=== PATIENT | male | born 1950 | race Caucasian/White ===

== ENCOUNTER 2020-01-01 07:18 | Emergency (ER) | payer OTHER, BC ==
[2020-01-01 07:32] VITALS: BP 155/77; PULSE 66; TEMP 98.6; BMI 24.2
[2020-01-01] MEDS ORDERED: LOCK ITEM NR ONE (07:33)
[2020-01-01] MEDS ORDERED: LIDOCAINE 5% TOPICAL PATCH TP ONE (07:37)
[2020-01-01] MEDS ORDERED: NAPROXEN 500 MG TABLET PO ONE (07:38)
[2020-01-01] MEDS ORDERED: LIDOCAINE 5% TOPICAL PATCH ONE (07:42)
[2020-01-01] MEDS ORDERED: NAPROXEN 500 MG TABLET ONE (07:43)
--- NOTE | 2020-01-01 07:43 | PDOC ---
History of Present Illness - General Chief Complaint: Back Pain Stated Complaint: back pain Time Seen by Provider: 01/01/20 07:22 - History of Present Illness Initial Comments: 01/01/20 07:38 69 M with DM, HTN, HLD, presenting to ED with 1 week of lower back pain. Pt states that he does a lot of lifting for his job but does not recall any injuries at work. He states that he feels the pain in his L lower back more than his R lower back, and it is worse with bending. Denies any weakness/numbness in either leg. Denies incontinence of bowel or bladder, no saddle anesthesia. Denies radiation of pain to abdomen or chest. Denies pain radiating down legs. Pt took a motrin at home with no relief. Past History - Medical History Allergies/Adverse Reactions: Allergies Allergy/AdvReac Type Severity Reaction Status Date / Time No Known Allergies Allergy Verified 01/01/20 07:19 Home Medications: Ambulatory Orders Aspirin [Aspir 81] 81 mg PO DAILY 04/15/13 Atorvastatin Ca [Lipitor] 20 mg PO HS 12/07/14 metFORMIN HCL [Glucophage] 1,000 mg PO BID 12/07/14 Insulin Glargine,Hum.rec.anlog [Lantus] 10 unit SQ HS vial 06/02/16 Empagliflozin [Jardiance] 10 mg PO DAILY 01/01/20 Fluoxetine HCl [Prozac] 10 mg PO DAILY 01/01/20 Lisinopril 5 mg PO DAILY 01/01/20 COPD: No Diabetes: Yes Disorders: Yes (BPH) HTN: Yes Hypercholesterolemia: Yes - Immunization History Td Vaccination: Yes - Psycho-Social/Smoking History Smoking History: Never smoked Have you smoked in the past 12 months: No Information on smoking cessation initiated: No - Substance Abuse Hx (Audit-C & DAST Scrn) How often the patient has a drink containing alcohol: Never Score: In Men: 4 or > Positive; In Women: 3 or > Positive: 0 Screen Result (Pos requires Nsg. Audit-10AR): Negative In the last yr the pt used illegal drug/Rx for NonMed reason: No Score: Yes response is considered Positive: 0 Screen Result (Positive result requires Nsg. DAST-10): Negative Review of Systems - Review of Systems Comments:: 01/01/20 07:40 "GENERAL/CONSTITUTIONAL: No fever or chills. No weakness. HEAD, EYES, EARS, NOSE AND THROAT: No change in vision. No ear pain or discharge. No sore throat. CARDIOVASCULAR: No chest pain, no shortness of breath, no loss of consciousness RESPIRATORY: No cough, wheezing, or hemoptysis. GASTROINTESTINAL: No nausea, vomiting, diarrhea or constipation. GENITOURINARY: No dysuria, frequency, or change in urination. MUSCULOSKELETAL: + back pain. No joint or muscle swelling or pain. SKIN: No rash NEUROLOGIC: No vertigo, no change in strength/sensation. ENDOCRINE: No increased thirst. No abnormal weight change. HEMATOLOGIC/LYMPHATIC: No anemia, easy bleeding, or history of blood clots. ALLERGIC/IMMUNOLOGIC: No hives or skin allergy. *Physical Exam - Vital Signs Last Vital Signs Temp Pulse Resp BP Pulse Ox 98.6 F 66 20 155/77 100 01/01/20 07:19 01/01/20 07:19 01/01/20 07:19 01/01/20 07:19 01/01/20 07:19 - Physical Exam 01/01/20 07:40 GENERAL: Awake, alert, and fully oriented, in no acute distress. HEAD: No signs of trauma EYES: PERRLA, EOMI, sclera anicteric, conjunctiva clear ENT: Auricles normal inspection, hearing grossly normal, nares patent, oropharynx clear without exudates. Moist mucosa NECK: Nontender, no stepoffs, Normal ROM, supple, no lymphadenopathy, JVD, or masses LUNGS: Breath sounds equal, clear to auscultation bilaterally. No wheezes, and no crackles HEART: Regular rate and rhythm, normal S1 and S2, no murmurs, rubs or gallops ABDOMEN: Soft, nontender, normoactive bowel sounds. No guarding, no rebound. No masses EXTREMITIES: Normal range of motion, no edema. No clubbing or cyanosis. No cords, erythema, or tenderness NEUROLOGICAL: Cranial nerves II through XII intact. 5/5 strength and sensation in all extremities, Normal speech, normal gait, normal cerebellar function SKIN: Warm, Dry, normal turgor, no rashes or lesions noted. BACK: + L paraspinal lumbar TTP, no midline TTP, no stepoffs Medical Decision Making - Medical Decision Making 07/15/20 07:43 69 M with lower back pain x 1 week. Likely muscle spasm vs mild radiculopathy. No neuro deficits to suggest cord compression/cauda equina. No CVA tenderness to suggest renal colic. Distal pulses intact, making aortic aneurysm/dissection unlikely. - Lidocaine patch - Naproxen - F/u ortho and PMD Pt is well appearing, with normal vitals. Clinically stable for DC at this time. I discussed the physical exam findings, ancillary test results and final diagnoses with the patient. I answered all of the patient's questions. The patient was satisfied with the care received and felt comfortable with the discharge plan and treatment plan. The patient agrees to follow up with the primary care physician within 24-72 hours. Please note this patient was evaluated during the COVID-19 crisis with the presidential [place] Act Declaration and the [place] governvt executive order number 202. He/she was evaluated and clinical decisions were made relative to healthcare system resources as well as clinical picture during a pandemic crisis situation. Discharge - Discharge Information Problems reviewed: Yes Clinical Impression/Diagnosis: Back pain Disposition: HOME - Follow up/Referral Referrals: Rashard Jim DO [Staff Physician] - - Patient Discharge Instructions Patient Printed Discharge Instructions: DI for Low Back Pain Additional Instructions: Take tylenol or motrin as needed for pain. Take one Flexeril (muscle relaxant) every 8 hours as needed. This may make you drowsy, so do not drive or operate heavy machinery while taking this medication. If you experience worsening pain, weakness or numbness in your legs, difficulty walking, abdominal pain, chest pain, or any other concerning symptoms, return to the ER immediately. Otherwise, follow up with your primary care doctor within 1 week. You may also want to see an orthopedist for further evaluation of your back pain. Call the number provided for an appointment. - Post Discharge Activity
[2020-01-01] MEDS ORDERED: LIDOCAINE PATCH REMOVAL MC SCH (22:00)
== END 2020-01-01 08:07 | disposition home or self-care (01) ==
LOC: FER 07:18
DX: M54.9 Dorsalgia, unspecified (principal)
CPT/HCPCS: 99284-25

== ENCOUNTER 2021-04-01 20:10 | Inpatient (IN) | payer OTHER, BC ==
[2021-04-01] MEDS ORDERED: VANCOMYCIN 1,000 MG in DEXTROSE 5%-WATER - 250 ML IVPB ONE (21:09)
[2021-04-01] MEDS ORDERED: PIPERACILLIN/TAZOB 4.5 GM 4.5 GM in DEXTROSE 5%-WATER - 100 ML IVPB ONE (21:09)
[2021-04-01] MEDS ORDERED: VANCOMYCIN 1,000 MG VIAL (RESTRICTED TO ID ONLY) ONE (21:19)
[2021-04-01] MEDS ORDERED: ACETAMINOPHEN 1000 MG/100 ML VIAL IVPB ONE (21:32)
[2021-04-01 21:33] LABS: HEMOGLOBIN 13.8 GM/dl (11.7-16.9); MCH 29.9 pg (25.7-33.7); MCHC 33.6 g/dl (32.0-35.9); PLATELET COUNT 224 10^3/uL (134-434); RBC 4.61 M/mm3 (4.00-5.60); RDW 12.2 % (11.9-15.9); WHITE BLOOD COUNT 7.6 K/mm3 (4.0-10.8)
[2021-04-01] MEDS ORDERED: ACETAMINOPHEN INJECTION 100 ML IVPB ONE (21:36)
[2021-04-01 21:51] LABS: BILIRUBIN,TOTAL 0.6 mg/dl (0.2-1); CALCIUM 8.8 mg/dl (8.5-10); CREATININE 0.7 mg/dl (0.55-1.3); TOT PROT 6.6 g/dl (6.4-8.2)
[2021-04-01 21:52] LABS: ACTIVATED PTT 26.8 SECONDS (25.2-36.5)
[2021-04-01 21:57] LABS: INR 1.05 (0.82-1.09); PROTHROMBIN TIME (PATIENT) 11.7 SEC (10.2-13.0)
[2021-04-01 22:01] LABS: PLATELET ESTIMATE ADEQUATE
[2021-04-01 22:15] LABS: ERYTHROCYTE SEDIMENTATION RATE 16 mm/hr (0-20)
[2021-04-02] MEDS ORDERED: morphine CARPU-JECT 4 MG/1 ML DISP.SYRIN IVPUSH ONE (00:22)
[2021-04-02] MEDS ORDERED: morphine SULFATE 4 MG/ML VIAL ONE ×2 (00:24→01:53)
[2021-04-02] MEDS ORDERED: morphine SULFATE 4 MG/ML VIAL IVPUSH ONE (01:48)
[2021-04-02] MEDS ORDERED: morphine CARPU-JECT 2 MG/1 ML DISP.SYRIN IVPUSH ONE (01:48)
[2021-04-02] MEDS ORDERED: DEXTROSE 5%-0.45% SALINE 1,000 ML IV SCH (02:00)
[2021-04-02 03:13] VITALS: BMI 23.3
[2021-04-02] MEDS ORDERED: PIPERACILLIN/TAZOBACTAM 4.5 GM VIAL IVPB ONE ×2 (03:34→08:49)
[2021-04-02] MEDS ORDERED: DEXTROSE 5%-WATER 100 ML IVPB ONE ×2 (03:34→08:48)
[2021-04-02] MEDS: PIPERACILLIN/TAZOB 4.5 GM 4.5 GM in DEXTROSE 5%-WATER 100 ML IVPB SCH ×2 (03:44→09:17)
[2021-04-02] MEDS: ACETAMINOPHEN 1000 MG/100 ML VIAL IVPB PRN ×3 (03:44→16:06)
[2021-04-02 08:05] LABS: BASO % 3.3 % (0-2.0); EOS % 1.9 % (0-4.5); HEMATOCRIT 37.8 % (35.4-49); HEMOGLOBIN 12.2 GM/dl (11.7-16.9); LYMPH % 28.1 % (8-40); MCH 28.5 pg (25.7-33.7); MCHC 32.2 g/dl (32.0-35.9); MEAN CELL VOLUME 88.2 fl (80-96); MEAN PLT VOLUME 9.9 fl (7.5-11.1); MONO % 9.5 % (3.8-10.2); NEUT % 57.2 % (42.8-82.8); PLATELET COUNT 216 10^3/uL (134-434); RBC 4.28 M/mm3 (4.00-5.60); RDW 12.2 % (11.9-15.9)
[2021-04-02 08:25] LABS: CALCIUM 8.3 mg/dl (8.5-10); CREATININE 0.7 mg/dl (0.55-1.3)
[2021-04-02] MEDS: morphine SULFATE 4 MG/ML VIAL IVPUSH PRN ×3 (08:41→20:05)
[2021-04-02] MEDS ORDERED: VANCOMYCIN 1 GRAM (PRE-DOCKED) 1 GM/250 ML BAG IVPB SCH (09:00)
[2021-04-02] MEDS ORDERED: INSULIN SLIDING SCALE (NOVOLOG) 1 VIAL SQ ONE (13:34)
[2021-04-02] MEDS: INSULIN (NOVOLOG) ASPART 100 UNITS/ML 10ML VIAL SQ SCH ×3 (13:37→21:31)
[2021-04-02] MEDS: FLUoxetine HCL 10 MG CAPSULE PO SCH (13:51)
[2021-04-02] MEDS: LISINOPRIL 5 MG TABLET PO SCH (13:52)
[2021-04-02] MEDS: CLINDAMYCIN 300 MG PREMIX IVPB 300 MG/50 ML BAG IVPB SCH ×2 (13:52→21:31)
[2021-04-02] MEDS: ASPIRIN COATED 81 MG TABLET.EC PO SCH (13:52)
[2021-04-02] MEDS ORDERED: PIPERACILLIN/TAZOBACTAM 3.375 GM VIAL IVPB ONE (18:08)
[2021-04-02] MEDS ORDERED: SODIUM CHLORIDE 50 ML IVPB ONE (18:08)
[2021-04-02] MEDS: PIPERACILLIN/TAZOB 3.375 GM 3.375 GM in SODIUM CHLORIDE 50 ML IVPB SCH (18:34)
[2021-04-02] MEDS: ATORVASTATIN CA 20 MG TABLET (FP) PO SCH (21:31)
[2021-04-03] MEDS ORDERED: PIPERACILLIN/TAZOBACTAM 3.375 GM VIAL IVPB ONE ×4 (00:12→23:43)
[2021-04-03] MEDS ORDERED: SODIUM CHLORIDE 50 ML IVPB ONE ×4 (00:12→23:44)
[2021-04-03] MEDS: PIPERACILLIN/TAZOB 3.375 GM 3.375 GM in SODIUM CHLORIDE 50 ML IVPB SCH ×3 (01:09→19:12)
[2021-04-03] MEDS: morphine SULFATE 4 MG/ML VIAL IVPUSH PRN ×3 (02:56→20:01)
[2021-04-03] MEDS ORDERED: PIPERACILLIN/TAZOB 4.5 GM 4.5 GM in DEXTROSE 5%-WATER 100 ML IVPB SCH (03:00)
[2021-04-03] MEDS: CLINDAMYCIN 300 MG PREMIX IVPB 300 MG/50 ML BAG IVPB SCH ×3 (06:24→21:24)
[2021-04-03] MEDS: INSULIN (NOVOLOG) ASPART 100 UNITS/ML 10ML VIAL SQ SCH ×4 (07:04→21:25)
[2021-04-03] MEDS ORDERED: VANCOMYCIN 1,000 MG in DEXTROSE 5%-WATER - 250 ML IVPB SCH (09:00)
[2021-04-03] MEDS: ACETAMINOPHEN 1000 MG/100 ML VIAL IVPB PRN ×2 (09:36→23:09)
[2021-04-03] MEDS: LISINOPRIL 5 MG TABLET PO SCH (09:36)
[2021-04-03] MEDS: FLUoxetine HCL 10 MG CAPSULE PO SCH (09:36)
[2021-04-03] MEDS: ASPIRIN COATED 81 MG TABLET.EC PO SCH (09:36)
[2021-04-03] MEDS: ENOXAPARIN NA (PORCINE) 40 MG/0.4 ML DISP.SYRIN SQ SCH (10:21)
[2021-04-03] MEDS ORDERED: TETANUS AND DIPHTHERIA TOXOID 0.5 ML DISP.SYRIN IM ONE (10:32)
[2021-04-03] MEDS ORDERED: MAGNESIUM HYDROX 2400MG/30ML ORAL SUSPENSION 30 ML CUP PO PRN (10:57)
[2021-04-03] MEDS ORDERED: DOCUSATE SODIUM 100 MG CAPSULE (FP) PO PRN (10:57)
[2021-04-03] MEDS: LACTOBACILLUS ACIDOPHILUS 1 TABLET PO SCH (12:04)
[2021-04-03] MEDS: oxyCODONE HCL 5 MG TABLET PO PRN (13:43)
[2021-04-03] MEDS: ATORVASTATIN CA 20 MG TABLET (FP) PO SCH (21:24)
[2021-04-04] MEDS: PIPERACILLIN/TAZOB 3.375 GM 3.375 GM in SODIUM CHLORIDE 50 ML IVPB SCH ×2 (01:32→10:11)
[2021-04-04] MEDS: CLINDAMYCIN 300 MG PREMIX IVPB 300 MG/50 ML BAG IVPB SCH ×2 (06:46→14:56)
[2021-04-04] MEDS: INSULIN (NOVOLOG) ASPART 100 UNITS/ML 10ML VIAL SQ SCH ×2 (06:47→12:02)
[2021-04-04] MEDS: oxyCODONE HCL 5 MG TABLET PO PRN ×2 (06:47→11:04)
[2021-04-04] MEDS ORDERED: PIPERACILLIN/TAZOBACTAM 3.375 GM VIAL IVPB ONE (10:06)
[2021-04-04] MEDS ORDERED: SODIUM CHLORIDE 50 ML IVPB ONE (10:06)
[2021-04-04] MEDS: ENOXAPARIN NA (PORCINE) 40 MG/0.4 ML DISP.SYRIN SQ SCH (10:11)
[2021-04-04] MEDS: LISINOPRIL 5 MG TABLET PO SCH (10:11)
[2021-04-04] MEDS: ASPIRIN COATED 81 MG TABLET.EC PO SCH (10:11)
[2021-04-04] MEDS: LACTOBACILLUS ACIDOPHILUS 1 TABLET PO SCH (10:11)
[2021-04-04] MEDS: FLUoxetine HCL 10 MG CAPSULE PO SCH (10:11)
[2021-04-04 14:11] VITALS: BP 153/64; PULSE 65; TEMP 98.5
[2021-04-04] MEDS ORDERED: INSULIN (LEVEMIR) 100 UNITS/ML UNITS SQ SCH (22:00)
== END 2021-04-04 15:42 | disposition left against medical advice (07) | DRG 603 ==
LOC: FER 20:10 → FM/S 21:32 → UNDOADMIN 04-02 02:11 → FM/S 04-02 02:54
PROVIDERS: ADMIT Internal Medicine; ATTEND Nurse Practitioner Family
DX: L03.111 Cellulitis of right axilla (principal); E11.9 Type 2 diabetes mellitus without complications; I10 Essential (primary) hypertension; E78.5 Hyperlipidemia, unspecified; N40.0 Benign prostatic hyperplasia without lower urinary tract symptoms; L08.9 Local infection of the skin and subcutaneous tissue, unspecified; F32.A Depression, unspecified; S61.212A Laceration without foreign body of right middle finger without damage to nail, initial encounter; W26.8XXA Contact with other sharp object(s), not elsewhere classified, initial encounter; Y92.098 Other place in other non-institutional residence as the place of occurrence of the external cause
CPT/HCPCS: 36415; 71045-TC-FY; 73130-TC-RT-FY; 80048; 80053; 82962; 83036; 85025; 85610; 85651; 85730; 86850; 86900; 86901; 87040; 93005; 99285-25; C9803; J0131; U0003; U0005